=== PATIENT | female | born 1990 | race Two or more races ===

== ENCOUNTER 2020-06-24 05:30 | Emergency (ER) | payer OTHER ==
[2020-06-24 05:35] VITALS: BP 128/95; PULSE 88; TEMP 98.8; BMI 25.7
[2020-06-24] MEDS ORDERED: IBUPROFEN 400 MG TABLET (FP) PO ONE ×2 (05:55→06:01)
== END 2020-06-24 06:30 | disposition home or self-care (01) ==
LOC: FER 05:30 → SUPCPDRO 05:30 → FER 06:28
DX: R07.9 Chest pain, unspecified (principal)
CPT/HCPCS: 93005; 99284-25